=== PATIENT | female | born 1950 | race Caucasian/White ===

== ENCOUNTER 2023-08-21 01:47 | Emergency (ER) | payer OTHER, SELFPAY ==
[2023-08-21 01:50] VITALS: BP 160/92
--- NOTE | 2023-08-21 02:07 | ED.GENMED ---
History of Present Illness
General
Chief Complaint: Abdominal Symptoms
Source: patient
Exam Limitations: none
Time Seen by Provider: 08/21/23 01:56
Travel History
Have you had any contact with someone who has COVID-19?: No
Do you have any symptoms of coronavirus? Fever > 100 degrees, chills, cough, shortness of breath, sore throat, loss of taste or smell, muscle aches, or headache?: No
History of Present Illness
History of Present Illness:
This is a 72 year old female that comes in with multiple complaints. States that she started on Monday night with a headache and vomiting. States that now she has dry heaves and for the past 12 hours she cant keep even a sip down and it comes
back up.. States that she has body aches and and had a low grade fever. States that she also had diarrhea. Patient called the PCP office and was told to come to the ER. Denies any chills, chest pain, SOB, abd pain, dizziness, urinary burning.
Past History
Past History
ED Past Medical History: HTN, Hypercholesterolemia, NIDDM, Hypothyroidism, Psychiatric (Anxiety ) and Other (PNA, Mitral valve regurg, Renal calculus)
ED Past Surgical History: Appendectomy, Cholecystectomy, ( X 3) and Urological (Stent Left ureter with Lithotripsy)
Social History
Tobacco: Former smoker
Alcohol: None
Personal:
Living: alone
Review of Systems
Review of Systems
All Other Systems: ROS reviewed and negative except as documented in HPI and ROS
Constitutional: Reports fever; Denies chills
EENT: Reports no symptoms
Respiratory: Reports cough; Denies trouble breathing
Cardiac: Reports no symptoms; Denies chest pain
ABD/GI: Reports nausea, vomiting and diarrhea; Denies abdominal pain
: Reports no symptoms; Denies dysuria, frequency or urgency
Musculoskeletal: Reports no symptoms
Skin: Reports no symptoms
Neurological: Reports headache; Denies dizzy
Psychiatric: Reports no symptoms
Phy Exam
General Physical Exam
General Presentation: no apparent distress
General age: appears stated age
General Skin: warm and dry
General Habitus: elderly
General Mental: alert
General Hydration: dry mucous membranes
ENT Exam
ENT Exam: TM's normal, pharynx normal and neck supple
Eye Exam
Eye Exam: EOMI
Cardiovascular Exam
Cardiovascular Exam: regular rate/rhythm, no edema, no murmur and normal peripheral pulses
Pulmonary Exam
Pulmonary Exam: lungs clear, no respiratory distress, no rales, chest non tender, no crackles, no rhonchi, no wheezing and other (Dry cough noted)
Gastrointestinal Exam
Gastrointestinal Exam: normal bowel sounds, non tender, soft, no organomegaly, no pulsatile mass, non distended and other (Obese)
Musculoskeletal Exam
Musculoskeletal Exam: full ROM and no edema
Skin Exam
Skin Exam: normal color, warm/dry, no rash and no petechia
Psychiatric Exam
Psychiatric Exam: normal mood/affect
Course
Orders/Labs/Results
Orders:
Orders
08/21/23 02:06
0.9% Sodium Chloride 1000 ml [Nss] 1,000 ml IV BOLUS
Acetaminophen [Tylenol] 1,000 mg PO NOW STA
Ketorolac [Toradol] 30 mg IV NOW STA
Ondansetron Injectable [Zofran] 4 mg IV NOW STA
08/21/23 02:14
COVID-19 Antigen Urgent
Source: Nasal Swab
Influenza A+B Rapid Molecular Urgent
MICHAEL Source: Nasal Swab
Specimen Description:
08/21/23 02:17
Complete Blood Count/With Diff Urgent
Comprehensive Metabolic Panel Urgent
Abnormal Lab Results
08/21/23
02:17
MCV 76.6 L fL
(81.0-99.0)
Absolute Lymphs (auto) 0.5 L 10^3/uL
(1.2-3.4)
Absolute Monos (auto) 0.7 H 10^3/uL
(0.1-0.6)
Neutrophils % 82.7 H %
(42.2-75.2)
Lymphocytes % 6.8 L %
(20.5-51.1)
Monocytes % 9.8 H %
(1.7-9.3)
Sodium 131 L mmol/L
(135-145)
Creatinine 0.5 L mg/dL
(0.6-1.0)
Glucose 196 H mg/dl
(70-99)
08/21/23 02:17
08/21/23 02:17
Sodium slightly low. Glucose nonfasting. COVID negative. Influenza A positive
Vital Signs
Initial and Last Documented VS:
Initial Vital Signs
Temp Pulse Resp BP Pulse Ox
98.5 F 90 24 160/92 94
08/21/23 01:50 08/21/23 01:50 08/21/23 01:50 08/21/23 01:50 08/21/23 01:50
Last Documented Vital Signs
Temp Pulse Resp BP Pulse Ox
98.5 F 90 16 147/72 93
08/21/23 01:50 08/21/23 03:00 08/21/23 02:38 08/21/23 03:00 08/21/23 02:38
MDM/Problems Addressed
Differential Diagnosis Includes:
COVID, Influenza, Viral syndrome
MDM/Problems Addressed:
This is a 72 year old female that comes in with multiple complaints. States that she has had a headache for the past 18-20 hours. States that she is nauseated and unable to keep anything down. Sates that she also has diarrhea and a low grade fever.
Will check labs. COVID, Influenza, medicate for pain and nausea. IV fluids
Back into see patient. Explained that she has influenza A. Encouraged patient to increase her water intake to 8-8oz glasses daily. Tylenol or Ibuprofen for fever and body aches. Follow up with the family doctor. Return with any concerns.
Chronic conditions affecting care: DM
Acute Exacerbation and/or Progression of Chronic Illness:
NA
*Pulse Oximetry
Patient hypoxic: no
*EKG
Interpreted by ED Provider?: NA
Rate: EKG- N/A
*Proof Load Mechanic Interpretation
Rate: Proof Load Mechanic- N/A
*Critical Care Note
Total Time (30-74mins, 75-104mins- exclusive of procedures): Not Applicable
ED Attending Note
-
Portions of this chart may have been created with voice recognition software.� Occasional wrong word or��sound alike� substitutions may have occurred due to the inherent limitations of voice recognition software.
Discharge Plan
Departure
Patient Disposition: Home (Routine Discharge)
Date of Disposition: 08/21/23
Time of Disposition: 03:15
Patient with high blood pressure during this ER visit?: Yes
Condition: Good
Covid-19: Negative COVID-19
Discharge Problem:
Influenza A
Instructions: Flu, Adult (DC), BLOOD PRESSURE
Prescriptions:
New
ondansetron 4 mg tablet,disintegrating
4 mg PO Q8H PRN (Reason: nausea and vomiting) Qty: 10 0RF
No Action
levothyroxine [Synthroid] 137 MCG tablet
137 mcg PO DAILY
cyanocobalamin (vitamin B-12) 1,000 MCG tablet
1,000 mcg PO DAILY
ascorbic acid (vitamin C) [Vitamin C] 500 MG tablet
1,000 mg PO DAILY
metformin 1,000 MG tablet
1,000 mg PO BID
zinc 50 MG tablet
50 mg PO DAILY
lovastatin 20 MG tablet
20 mg PO QPM
glipizide 5 MG tablet
10 mg PO DAILY
olmesartan [Benicar] 5 MG tablet
5 mg PO DAILY
docosahexaenoic acid-epa 1 CAP capsule
1 cap PO DAILY
cholecalciferol (vitamin D3) 1,000 UNITS tablet
1,000 units PO DAILY
dulaglutide [Trulicity] 1.5 MG/0.5 ML pen injector
1.5 mg SC REID
Patient Comments:
ONCE WEEKLY ON MONDAY
insulin glargine U-300 conc [Toujeo SoloStar U-300 Insulin] 300 UNIT/ML insulin pen
30 unit SC QPM
magnesium oxide 400 MG tablet
400 mg PO DAILY
Cbd Oil
2 drops PO DAILYPRN PRN (Reason: 'FOR THE HELL OF IT')
Iron 25 MG
1 tab PO DAILY
tramadol 50 MG tablet
50 mg PO Q8HPRN PRN (Reason: pain) Qty: 20 0RF
Patient Comments:
Pt states she never took this pill
phenazopyridine 100 MG tablet
100 mg PO BID Qty: 20 0RF
cefdinir 300 MG capsule
300 mg PO BID Qty: 14 0RF
albuterol sulfate [Proventil HFA] 90 MCG/PUFF HFA aerosol inhaler
1 puff inhalation Q4HPRN PRN (Reason: shortness of breath) Qty: 1 0RF
Referrals:
Sarah Vance NP [Family Provider] - Call in 1-3 days for appt
Activity Restrictions/Additional Instructions:
As discussed, your blood work shows that your Sodium is very slightly low. You are negative for COVID but Positive for influenza A. This is a viral syndrome and just takes time. Please increase your water intake to 8-8oz glasses daily. You may also
take Tylenol 1000mg every 6 hours for fever and body aches and Ibuprofen 600mg every 6 hours with food and alternate them. Follow up with the family doctor as needed. IF YOU HAVE ANY OTHER CONCERNS PLEASE RETURN TO THE EMERGENCY ROOM.
Interventions
Interventions:
*Risk Screen - Suicide Last Done: 08/21/23 01:50
*General Assessment Last Done: 08/21/23 02:38
*Neglect/Abuse Screening Last Done: 08/21/23 01:50
ED- Fall Risk Assessment Last Done: 08/21/23 02:38
*ED COVID-19 Vaccine History Last Done: 08/21/23 01:59
PW-Uwbpeq-Swcabzaiyh Assessment Last Done: 08/21/23 02:38
ED- Pulmonary Assessment Last Done: 08/21/23 02:38
[2023-08-21] MEDS: NSS 1000 IV (02:27)
[2023-08-21] MEDS: ZOFRAN 4 MG IV ×2 (02:27→03:22)
[2023-08-21] MEDS: TORADOL 30 MG IV (02:28)
[2023-08-21] MEDS: TYLENOL 1000 MG PO (02:29)
[2023-08-21 02:38] VITALS: BP 161/72; BMI 34.0
[2023-08-21 02:48] LABS: % Basophils 0.3 % (0-2); % Immature Granulocytes 0.4 % (0-0.5); % Lymphocytes 6.8 % (20.5-51.1); % Monocytes 9.8 % (1.7-9.3); % Neutrophils 82.7 % (42.2-75.2); Absolute Lymphocytes 0.5 10^3/uL (1.2-3.4); Absolute Monocytes 0.7 10^3/uL (0.1-0.6); Absolute Neutrophils 5.8 10^3/uL (1.4-6.5); Hematocrit 38.4 % (37.0-47.0); Hemoglobin 13.6 g/dL (12.0-16.0); Mean Corp Hgb Conc. 35.4 g/dL (33.0-37.0); Mean Corpuscular Hgb 27.1 pg (27.0-31.0); Mean Corpuscular Volume 76.6 fL (81.0-99.0); Mean Platelet Volume 9.9 fL (7.4-10.4); Nucleated Red Blood Cells % 0 %; Platelet Count 242 10^3/uL (130-400); Red Blood Cell Count 5.01 10^6/uL (4.20-5.40); Red Cell Dist. Width 13.2 % (11.5-14.5)
[2023-08-21 03:00] VITALS: BP 147/72
[2023-08-21 03:03] LABS: ALT (SGPT) 32 U/L (0-35); AST (SGOT) 29 U/L (14-36); Albumin 4.4 g/dl (3.5-5.0); Alkaline Phosphatase 96 U/L (38-126); Blood Urea Nitrogen 15 mg/dl (7-17); Calcium 8.9 mg/dl (8.4-10.2); Carbon Dioxide 24 mmol/L (22-30); Chloride 99 mmol/L (98-107); Estimated Creatinine Clearance 74 ml/min; Glucose 196 mg/dl (70-99); Potassium 3.8 mmol/L (3.5-5.1); Sodium 131 mmol/L (135-145); Total Protein 6.7 g/dl (6.3-8.2); eGFR > 60.00
[2023-08-21 03:08] LABS: COVID-19 Antigen Negative (Negative)
== END 2023-08-21 03:35 | disposition home or self-care (01) ==
LOC: EMR 01:47
PROVIDERS: Clinical Nurse Specialist Family Health; EMERGENCY PHYSICIAN Emergency Medicine; FAMILY PHYSICIAN Nurse Practitioner Family
DX: J10.1 Influenza due to other identified influenza virus with other respiratory manifestations (principal); I10 Essential (primary) hypertension; E78.00 Pure hypercholesterolemia, unspecified; E11.9 Type 2 diabetes mellitus without complications; E03.9 Hypothyroidism, unspecified; F41.9 Anxiety disorder, unspecified; Z87.891 Personal history of nicotine dependence; Z87.442 Personal history of urinary calculi; Z90.49 Acquired absence of other specified parts of digestive tract
CPT/HCPCS: 99283; 96374; 96375; 96376; 96361; 80053; 85025; 87502; 87811

== ENCOUNTER → 2023-09-08 16:10 | Outpatient (REF) | payer OTHER, SELFPAY | LOC: RAD 16:10 | PROVIDERS: ATTENDING PHYSICIAN Specialist; FAMILY PHYSICIAN Family Medicine | DX: N20.0 Calculus of kidney (principal) | CPT/HCPCS: 74176 ==

== ENCOUNTER 2024-07-18 10:24 | Emergency (ER) | payer OTHER, SELFPAY ==
[2024-07-18 10:37] VITALS: BP 101/79
--- NOTE | 2024-07-18 10:58 | ED.GENMED ---
History of Present Illness
General
Chief Complaint: Abdominal Symptoms
Source: patient
Exam Limitations: none
Time Seen by Provider: 07/18/24 10:53
History of Present Illness
History of Present Illness:
73-year-old insulin-dependent diabetic presents with onset of vomiting at 3 AM this morning. She has been unable to keep anything down since. She is vomiting upon triage. She notes intermittent crampy abdominal pain. She denies chest pain or
shortness of breath. She also notes loose stools. She denies any blood in the vomit or the stool. No known sick contacts. No other complaints at this time
Past History
Past History
ED Past Medical History: HTN, Hypercholesterolemia, NIDDM, Hypothyroidism, Psychiatric (Anxiety ) and Other (PNA, Mitral valve regurg, Renal calculus)
ED Past Surgical History: Appendectomy, Cholecystectomy, ( X 3) and Urological (Stent Left ureter with Lithotripsy)
Social History
Tobacco: Former smoker
Alcohol: None
Personal:
Living: alone
Phy Exam
Physical Exam
Physical Exam:
General: Well-developed female vomiting upon my exam
HEENT normocephalic mucosa dry neck is supple
Heart: Regular rate and rhythm
Lungs: Clear no wheeze abdomen is soft nontender nondistended guarding or rebound
Extremities: No cyanosis
Skin: No rash
Course
Orders/Labs/Results
Orders:
Orders
07/18/24 10:55
Ondansetron Injectable [Zofran] 4 mg .ROUTE .STK-MED ONE
07/18/24 10:59
0.9% Sodium Chloride 1000 ml [Nss] 1,000 ml IV BOLUS
Ondansetron Injectable [Zofran] 4 mg IV NOW STA
07/18/24 11:01
Norovirus by PCR Urgent
MICHAEL Source: Feces/Stool
Specimen Description:
Stool Culture Urgent
MICHAEL Source: Feces/Stool
Specimen Description:
07/18/24 11:32
Complete Blood Count/With Diff Urgent
Comprehensive Metabolic Panel Urgent
Lipase Urgent
Abnormal Lab Results
07/18/24
11:32
WBC 20.4 H 10^3/uL
(4.8-10.8)
RBC 6.22 H 10^6/uL
(4.20-5.40)
Hgb 16.5 H g/dL
(12.0-16.0)
Hct 50.7 H %
(37.0-47.0)
MCH 26.5 L pg
(27.0-31.0)
MCHC 32.5 L g/dL
(33.0-37.0)
Abs Immat Gran (auto) 0.1 H 10^3/uL
(0-0.05)
Absolute Neuts (auto) 19.2 H 10^3/uL
(1.4-6.5)
Absolute Lymphs (auto) 0.4 L 10^3/uL
(1.2-3.4)
Neutrophils % 94.2 H %
(42.2-75.2)
Lymphocytes % 2.0 L %
(20.5-51.1)
Chloride 96 L mmol/L
(98-107)
BUN 25 H mg/dl
(7-17)
Glucose 303 H mg/dl
(70-99)
Total Bilirubin 1.5 H mg/dl
(0.2-1.3)
Albumin 5.2 H g/dl
(3.5-5.0)
07/18/24 11:32
07/18/24 11:32
Vital Signs
Initial and Last Documented VS:
Initial Vital Signs
Temp Pulse Resp BP Pulse Ox
98.2 F 112 16 101/79 97
07/18/24 10:37 07/18/24 10:37 07/18/24 10:37 07/18/24 10:37 07/18/24 10:37
Last Documented Vital Signs
Temp Pulse Resp BP Pulse Ox
98.2 F 112 16 101/79 97
07/18/24 10:37 07/18/24 10:37 07/18/24 10:37 07/18/24 10:37 07/18/24 10:37
MDM/Problems Addressed
Differential Diagnosis Includes:
Patient with vomiting and diarrhea onset last night. Likely viral illness. Concern for dehydration or electrolyte abnormality. She is also an insulin-dependent diabetic. Will check serum glucose evaluate for signs of acidosis. Abdomen exam
relatively benign. Considered imaging however not indicated at this time. Will treat with Zofran and fluids.
*Critical Care Note
Total Time (30-74mins, 75-104mins- exclusive of procedures): Not Applicable
Update Note
Update Note:
Patient reevaluated feeling much better now tolerating oral fluids. Labs reviewed does have leukocytosis likely reactive from vomiting. Chemistry profile without significant findings. I suspect underlying viral illness. Patient will continue to
be hydrated here and if continues to feel better will send home on Zofran
ED Attending Note
-
Portions of this chart may have been created with voice recognition software.� Occasional wrong word or��sound alike� substitutions may have occurred due to the inherent limitations of voice recognition software.
Discharge Plan
Departure
Patient Disposition: Home (Routine Discharge)
Date of Disposition: 07/18/24
Time of Disposition: 13:57
Patient with high blood pressure during this ER visit?: No
Discharge Problem:
Vomiting and diarrhea
Instructions: Nausea and Vomiting, Adult (DC)
Prescriptions:
New
ondansetron 4 mg tablet,disintegrating
4 mg PO Q8H PRN (Reason: nausea and vomiting) Qty: 10 0RF
No Action
levothyroxine [Synthroid] 137 MCG tablet
137 mcg PO DAILY
cyanocobalamin (vitamin B-12) 1,000 MCG tablet
1,000 mcg PO DAILY
ascorbic acid (vitamin C) [Vitamin C] 500 MG tablet
1,000 mg PO DAILY
metformin 1,000 MG tablet
1,000 mg PO BID
zinc 50 MG tablet
50 mg PO DAILY
lovastatin 20 MG tablet
20 mg PO QPM
glipizide 5 MG tablet
10 mg PO DAILY
olmesartan [Benicar] 5 MG tablet
5 mg PO DAILY
docosahexaenoic acid-epa 1 CAP capsule
1 cap PO DAILY
cholecalciferol (vitamin D3) 1,000 UNITS tablet
1,000 units PO DAILY
dulaglutide [Trulicity] 1.5 MG/0.5 ML pen injector
1.5 mg SC REID
Patient Comments:
ONCE WEEKLY ON MONDAY
insulin glargine U-300 conc [Toujeo SoloStar U-300 Insulin] 300 UNIT/ML insulin pen
30 unit SC QPM
magnesium oxide 400 MG tablet
400 mg PO DAILY
Cbd Oil
2 drops PO DAILYPRN PRN (Reason: 'FOR THE HELL OF IT')
Iron 25 MG
1 tab PO DAILY
tramadol 50 MG tablet
50 mg PO Q8HPRN PRN (Reason: pain) Qty: 20 0RF
Patient Comments:
Pt states she never took this pill
phenazopyridine 100 MG tablet
100 mg PO BID Qty: 20 0RF
cefdinir 300 MG capsule
300 mg PO BID Qty: 14 0RF
albuterol sulfate [Proventil HFA] 90 MCG/PUFF HFA aerosol inhaler
1 puff inhalation Q4HPRN PRN (Reason: shortness of breath) Qty: 1 0RF
ondansetron 4 mg tablet,disintegrating
4 mg PO Q8H PRN (Reason: nausea and vomiting) Qty: 10 0RF
Referrals:
Sarah Vance NP [Family Provider] -
Activity Restrictions/Additional Instructions:
Drink plenty clear liquids. Advance to bland diet as tolerated. Use Zofran if needed for nausea. Return if worse otherwise follow-up with your doctor
Interventions
Interventions:
*Risk Screen - Suicide Last Done: 07/18/24 10:37
*General Assessment Last Done: 07/18/24 10:37
*ED COVID-19 Vaccine History Last Done: 07/18/24 10:37
Discharge Date and Time
Print Language: URDU
[2024-07-18 11:09] VITALS: BMI 32.6
[2024-07-18] MEDS: ZOFRAN 4 MG IV (11:34)
[2024-07-18] MEDS: NSS 1000 IV (11:35)
[2024-07-18 11:51] LABS: % Basophils 0.3 % (0-2); % Eosinophils 0.1 % (0-6); % Immature Granulocytes 0.4 % (0-0.5); % Neutrophils 94.2 % (42.2-75.2); Absolute Basophils 0.1 10^3/uL (0-0.2); Absolute Immature Granulocytes 0.1 10^3/uL (0-0.05); Absolute Lymphocytes 0.4 10^3/uL (1.2-3.4); Absolute Monocytes 0.6 10^3/uL (0.1-0.6); Absolute Neutrophils 19.2 10^3/uL (1.4-6.5); Hematocrit 50.7 % (37.0-47.0); Hemoglobin 16.5 g/dL (12.0-16.0); Mean Corp Hgb Conc. 32.5 g/dL (33.0-37.0); Mean Corpuscular Hgb 26.5 pg (27.0-31.0); Mean Corpuscular Volume 81.5 fL (81.0-99.0); Nucleated Red Blood Cells % 0 %; Platelet Count 301 10^3/uL (130-400); Red Blood Cell Count 6.22 10^6/uL (4.20-5.40); Red Cell Dist. Width 13.5 % (11.5-14.5); White Blood Cell Count 20.4 10^3/uL (4.8-10.8)
[2024-07-18 12:07] LABS: ALT (SGPT) 28 U/L (0-35); AST (SGOT) 25 U/L (14-36); Albumin 5.2 g/dl (3.5-5.0); Alkaline Phosphatase 79 U/L (38-126); Blood Urea Nitrogen 25 mg/dl (7-17); Calcium 9.9 mg/dl (8.4-10.2); Carbon Dioxide 28 mmol/L (22-30); Chloride 96 mmol/L (98-107); Estimated Creatinine Clearance 61 ml/min; Glucose 303 mg/dl (70-99); Lipase 91 U/L (23-300); Potassium 5.1 mmol/L (3.5-5.1); Sodium 136 mmol/L (135-145); Total Bilirubin 1.5 mg/dl (0.2-1.3); Total Protein 7.7 g/dl (6.3-8.2); eGFR > 60.00
[2024-07-18 13:00] VITALS: BP 121/61
== END 2024-07-18 14:10 | disposition home or self-care (01) ==
LOC: EMR 10:24
PROVIDERS: Physician Assistant; EMERGENCY PHYSICIAN Emergency Medicine; FAMILY PHYSICIAN Nurse Practitioner Family
DX: R11.2 Nausea with vomiting, unspecified (principal); R19.7 Diarrhea, unspecified; R10.9 Unspecified abdominal pain; E03.9 Hypothyroidism, unspecified; E11.9 Type 2 diabetes mellitus without complications; E78.00 Pure hypercholesterolemia, unspecified; I10 Essential (primary) hypertension; Z90.49 Acquired absence of other specified parts of digestive tract; Z87.442 Personal history of urinary calculi; Z87.891 Personal history of nicotine dependence
CPT/HCPCS: 96374; 96361; 99284; 80053; 83690; 85025

== ENCOUNTER → 2024-07-25 14:14 | Outpatient (REF) | payer OTHER, SELFPAY | LOC: WDC 14:14 | PROVIDERS: ATTENDING PHYSICIAN Nurse Practitioner Family | DX: Z12.31 Encounter for screening mammogram for malignant neoplasm of breast (principal); M85.80 Other specified disorders of bone density and structure, unspecified site | CPT/HCPCS: 77063; 77067 ==

== ENCOUNTER → 2024-09-11 14:20 | Outpatient (REF) | payer OTHER, SELFPAY | LOC: DHSLP 14:20 | PROVIDERS: ATTENDING PHYSICIAN Internal Medicine Critical Care Medicine; FAMILY PHYSICIAN Nurse Practitioner Family | DX: G47.33 Obstructive sleep apnea (adult) (pediatric) (principal); R09.02 Hypoxemia | CPT/HCPCS: 95800 ==

== ENCOUNTER → 2024-09-24 08:53 | Outpatient (REF) | payer OTHER, SELFPAY | LOC: RAD 08:53 | PROVIDERS: ATTENDING PHYSICIAN Nurse Practitioner Family | DX: R11.2 Nausea with vomiting, unspecified (principal); R10.13 Epigastric pain | CPT/HCPCS: 74160; Q9967 ==

== ENCOUNTER → 2024-11-25 15:25 | Outpatient (REF) | payer OTHER, SELFPAY | LOC: RAD 15:25 | PROVIDERS: ATTENDING PHYSICIAN Student in an Organized Health Care Education/Training Program; FAMILY PHYSICIAN Nurse Practitioner Family | DX: M15.9 Polyosteoarthritis, unspecified (principal); M70.61 Trochanteric bursitis, right hip; M70.62 Trochanteric bursitis, left hip; M81.0 Age-related osteoporosis without current pathological fracture; N20.0 Calculus of kidney; R11.10 Vomiting, unspecified | CPT/HCPCS: 72110; 73521 ==